=== PATIENT | male | born 2000 ===

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

== ENCOUNTER 2019-01-03 17:01 | Emergency (ER) | payer OTHER ==
[2019-01-03 17:28] VITALS: BP 141/69
--- NOTE | 2019-01-03 17:40 | UC ---
General HPI - HPI Summary HPI Summary: Patient is a 18yo male presenting with concern that he needs to be retreated for chlamydia. Patient states his girlfriend tested positive for chlamydia last week and received treatment. Patient states he was tested for chlamydia and gonorrhea on Thursday last week as well and treated with one time dose of azithromycin. Patient states the next night (Thursday) "about 17 hours later" he had four drinks with vodka in it. Patient states he remembers being told not to drink alcohol with the antibiotic so he is concerned it did not work. Also notes throwing up on Thursday morning once from drinking too much the night before. Patient notes he received phone call today noting positive test for chlamydia. Denies ever having any symptoms. - History of Current Complaint Chief Complaint: UCSTDScreening Stated Complaint: PERSONAL ISSUE Hx Obtained From: Patient Pain Intensity: 0 - Allergy/Home Medications Allergies/Adverse Reactions: Allergies Allergy/AdvReac Type Severity Reaction Status Date / Time No Known Allergies Allergy Verified 01/03/19 17:24 PMH/Surg Hx/FS Hx/Imm Hx Previously Healthy: Yes - Surgical History Surgical History: Yes Surgery Procedure, Year, and Place: tumor removed behind L ear. - Family History Known Family History: Positive: Non-Contributory Negative: Hypertension - Social History Alcohol Use: None Substance Use Type: None Smoking Status (MU): Never Smoked Tobacco - Immunization History Vaccination Up to Date: Yes Review of Systems All Other Systems Reviewed And Are Negative: No Constitutional: Positive: Negative Respiratory: Positive: Negative Gastrointestinal: Positive: Negative Genitourinary: Positive: Negative Musculoskeletal: Positive: Negative Neurological: Positive: Negative Physical Exam Triage Information Reviewed: Yes Appearance: Well-Appearing, No Pain Distress, Well-Nourished Vital Signs: Initial Vital Signs Temp 98.8 F 01/03/19 17:24 Pulse 67 01/03/19 17:24 Resp 18 01/03/19 17:24 BP 141/69 01/03/19 17:24 Pulse Ox 98 01/03/19 17:24 Vital Signs Reviewed: Yes Eyes: Positive: Conjunctiva Clear ENT: Positive: Hearing grossly normal Neck: Positive: Supple Respiratory: Positive: No respiratory distress Neurological: Positive: Alert Psychological: Positive: Age Appropriate Behavior Course/Dx - Course Course Of Treatment: Educated patient on chlamydia and sexually transmitted diseases. Educated on safe sex practices. Ensured patient that he does not need re-treatment at this time. Instructed to refrain from sexual intercourse until he and his girlfriend both get re-tested for assurance that infection is gone. All questions were answered, patient voiced understanding and agreed with plan. - Diagnoses Provider Diagnosis: Encounter for sexually transmitted disease counseling Discharge ED - Sign-Out/Discharge Documenting (check all that apply): Patient Departure All imaging exams completed and their final reports reviewed: No Studies - Discharge Plan Condition: Stable Disposition: HOME Patient Education Materials: Sexually Transmitted Diseases (ED), Safe Sex (ED) Referrals: [facility] [Outside] - If Needed Additional Instructions: As discussed, no further treatment is necessary. It is recommended that you follow up to be re-tested after two weeks to make sure your infection is gone. Make sure you are practicing safe sex. Follow up with the [facility] listed below if you experience any new symptoms. - Billing Disposition and Condition Condition: STABLE Disposition: Home
== END 2019-01-03 17:37 | disposition home or self-care (01) ==
LOC: UCEAST 17:01
DX: A74.9 Chlamydial infection, unspecified (principal); Z70.8 Other sex counseling
CPT/HCPCS: 99211; G0463